=== PATIENT | female | born 1935 | race Caucasian/White ===

== ENCOUNTER 2017-11-05 17:47 | Emergency (ER) | payer MEDICARE, BC ==
[~2017-11-05] VITALS: Ht 160 cm; Wt 54.5 kg
[~2017-11-05 17:47] MED LIST: AZIT250T27 PO; CYCL-1 PO; HYDR-569 PO
[2017-11-05] MEDS ORDERED: normal saline 1000ML IV soln IVB ONE (19:20)
[2017-11-05 19:51] LABS: BASOPHILS % (AUTO) 0.2 % (0-1); EOSINOPHILS # (AUTO) 0.5 X10'3 (0-0.9); EOSINOPHILS % (AUTO) 6.2 % (0-6); HEMATOCRIT 40.5 % (35.0-45.0); HEMOGLOBIN 13.6 g/dl (12.0-16.0); LYMPHOCYTES # (AUTO) 1.2 X10'3 (1.1-4.8); LYMPHOCYTES % (AUTO) 13.6 % (21-51); MEAN CORPUSCULAR HEMOGLOBIN 30.5 PG (27.0-31.0); MEAN CORPUSCULAR HGB CONC 33.7 % (33.0-36.5); MEAN CORPUSCULAR VOLUME 90.7 FL (78-98); MEAN PLATELET VOLUME 8.7 FL (7.4-10.4); MONOCYTES # (AUTO) 0.7 X10'3 (0-0.9); MONOCYTES % (AUTO) 8.8 % (2-12); NEUTROPHILS % (AUTO) 71.2 % (42-75); PLATELET COUNT 158 X10'3 (140-440); RED BLOOD COUNT 4.47 X10'6 (4.20-5.60); RED CELL DISTRIBUTION WIDTH 13.9 % (11.5-14.5); WHITE BLOOD COUNT 8.5 X10'3 (4.5-11.0)
[2017-11-05 20:02] LABS: INR 1.1 INR; PARTIAL THROMBOPLASTIN TIME 28 SECONDS (22-32); PROTHROMBIN TIME 11.1 SECONDS (9.0-12.0)
[2017-11-05 20:07] LABS: ANION GAP 5 (8-16); CHLORIDE 106 MMOL/L (99-107); GLUCOSE 108 MG/DL (70-104); SODIUM 141 MMOL/L (135-145)
[2017-11-05 20:08] LABS: ALANINE AMINOTRANSFERASE 21 U/L (12-78); ALBUMIN 3.4 G/DL (3.4-5.0); ALBUMIN/GLOBULIN RATIO 0.9 (1.1-1.5); ALKALINE PHOSPHATASE 98 IU/L (46-116); ASPARTATE AMINO TRANSFERASE 16 U/L (10-37); BILIRUBIN,TOTAL 0.5 MG/DL (0.1-1.0); BLOOD UREA NITROGEN 28 MG/DL (7-18); BUN/CREATININE RATIO 33.3 (6.6-38.0); CALCIUM 10.5 MG/DL (8.5-10.1); CREATININE 0.84 MG/DL (0.40-0.90); TOTAL PROTEIN 7.2 G/DL (6.4-8.2); eGFR 65 ML/MIN
[2017-11-05 21:41] LABS: CLARITY,URINE Cloudy (Clear); COLOR,URINE Yellow (Yellow); GLUCOSE, URINE Negative (Neg); KETONES,URINE Negative (Neg); LEUKOCYTE ESTERASE ,URINE Trace (Neg); NITRITES, URINE Negative (Neg); OCCULT BLOOD,URINE Negative (Neg); PROTEIN,URINE Negative (Neg); UROBILINOGEN,URINE 0.2 E.U/dL (0.2-1.0)
[2017-11-05 21:43] LABS: UA COLLECTION TYPE STRAIGHT CATH
[2017-11-05 22:09] LABS: BACTERIA,URINE FEW /HPF (Neg); MUCUS STRANDS MODERATE /LPF (Neg); RBC,URINE 0-2 /HPF (0-2); SQUAMOUS EPITHELIAL CELL,UR MODERATE /LPF (FEW); TRANSITIONAL EPI CELLS,URINE MODERATE /HPF; WBC,URINE 0-4 /HPF (0-4)
[2017-11-06 00:40] VITALS: BP 147/77
== END 2017-11-06 00:47 | disposition home or self-care (01) ==
LOC: ER 17:48
DX: F03.90 Unspecified dementia, unspecified severity, without behavioral disturbance, psychotic disturbance, mood disturbance, and anxiety (principal)
CPT/HCPCS: 36415; 71010; 80053; 81001; 82948; 84443; 85025; 85610; 85730; 87088; 87502; 87503; 93005; 99285; A4310; A4344; J7030

== ENCOUNTER 2017-12-13 13:00 | Inpatient (IN) | payer MEDICARE, BC ==
[~2017-12-13] VITALS: Ht 170.2 cm; Wt 54.5 kg
[2017-12-13] MEDS ORDERED: normal saline 1000ml 1,000 ML IV ONE (13:13)
[2017-12-13] MEDS ORDERED: normal saline 1000ML IV soln IVB ONE ×2 (13:15→14:40)
[2017-12-13 14:53] LABS: ALANINE AMINOTRANSFERASE 92 U/L (12-78); ALBUMIN 4.3 G/DL (3.4-5.0); ALBUMIN/GLOBULIN RATIO 1.2 (1.1-1.5); ANION GAP 13 (8-16); ASPARTATE AMINO TRANSFERASE 48 U/L (10-37); BASOPHILS # (AUTO) 0.1 X10'3 (0-0.2); BASOPHILS % (AUTO) 0.6 % (0-1); BILIRUBIN,TOTAL 0.7 MG/DL (0.1-1.0); BLOOD UREA NITROGEN 87 MG/DL (7-18); BUN/CREATININE RATIO 45.8 (6.6-38.0); CHLORIDE 138 MMOL/L (99-107); EOSINOPHILS # (AUTO) 0.2 X10'3 (0-0.9); EOSINOPHILS % (AUTO) 2.7 % (0-6); GLUCOSE 104 MG/DL (70-104); HEMATOCRIT 51.9 % (35.0-45.0); HEMOGLOBIN 16.7 g/dl (12.0-16.0); LYMPHOCYTES # (AUTO) 1.4 X10'3 (1.1-4.8); LYMPHOCYTES % (AUTO) 15.8 % (21-51); MAGNESIUM 2.9 MG/DL (1.5-2.4); MEAN CORPUSCULAR HEMOGLOBIN 29.9 PG (27.0-31.0); MEAN CORPUSCULAR HGB CONC 32.2 % (33.0-36.5); MEAN CORPUSCULAR VOLUME 92.7 FL (78-98); MEAN PLATELET VOLUME 11.1 FL (7.4-10.4); MONOCYTES # (AUTO) 0.5 X10'3 (0-0.9); NEUTROPHILS # (AUTO) 6.7 X10'3 (1.8-7.7); NEUTROPHILS % (AUTO) 74.9 % (42-75); PHOSPHORUS 4.2 MG/DL (2.3-4.5); PLATELET COUNT 120 X10'3 (140-440); POTASSIUM 3.7 MMOL/L (3.5-5.1); RED BLOOD COUNT 5.59 X10'6 (4.20-5.60); RED CELL DISTRIBUTION WIDTH 14.4 % (11.5-14.5); TOTAL CARBON DIOXIDE 28.9 MMOL/L (24-32); WHITE BLOOD COUNT 8.9 X10'3 (4.5-11.0); eGFR 25 ML/MIN
[2017-12-13 14:54] LABS: SODIUM 180 MMOL/L (135-145)
[2017-12-13 14:55] LABS: ALKALINE PHOSPHATASE 119 IU/L (46-116)
[2017-12-13] MEDS ORDERED: sodium chloride 0.45% 1,000 ML IV SCH (15:35)
[2017-12-13 15:37] LABS: CLARITY,URINE SLIGHTLY CLOUDY (Clear); COLOR,URINE YELLOW (Yellow); GLUCOSE, URINE NEGATIVE (Neg); KETONES,URINE NEGATIVE (Neg); LEUKOCYTE ESTERASE ,URINE NEGATIVE (Neg); NITRITES, URINE NEGATIVE (Neg); OCCULT BLOOD,URINE NEGATIVE (Neg); PH,URINE 5.5 (4.8-8.0); PROTEIN,URINE NEGATIVE (Neg); UROBILINOGEN,URINE 0.2 E.U/dL (0.2-1.0)
[2017-12-13 15:38] LABS: UA COLLECTION TYPE FOLEY CATH
[2017-12-13 15:43] LABS: URINE AMPHETAMINE SCREEN NEGATIVE (Neg); URINE BARBITUATE SCREEN NEGATIVE (Neg); URINE BENZODIAZEPINES SCREEN NEGATIVE (Neg); URINE CANNABINOID SCREEN NEGATIVE (Neg); URINE COCAINE SCREEN NEGATIVE (Neg); URINE METHADONE SCREEN NEGATIVE (Neg); URINE OPIATE SCREEN NEGATIVE (Neg); URINE PHENCYCLIDINE SCREEN NEGATIVE (Neg)
[2017-12-13] MEDS ORDERED: LORazepam 2 mg/ml vial IV PRN (15:55)
[2017-12-13] MEDS ORDERED: morphine 2 MG/ML inj. syringe IV PRN ×2 (15:55→16:05)
[2017-12-13] MEDS ORDERED: morphine 10mg/0.5ml (conc. morphine) oral syringe PO PRN (15:55)
[2017-12-13 15:57] LABS: HYALINE CASTS >30 /LPF (NEGATIVE); SQUAMOUS EPITHELIAL CELL,UR FEW /LPF (FEW)
[2017-12-13 15:58] LABS: BACTERIA,URINE FEW /HPF (Neg); RBC,URINE 0-2 /HPF (0-2)
[2017-12-13 15:59] LABS: WBC CLUMPS,URINE FEW /HPF (NEGATIVE)
[2017-12-13 16:00] LABS: RENAL CELLS, URINE MODERATE /HPF; WBC,URINE 0-4 /HPF (0-4)
[2017-12-13] MEDS ORDERED: ondansetron/PF 4mg/2ml inj IV PRN (16:00)
[2017-12-14] MEDS ORDERED: LORA10TA7 PO (08:58)
[2017-12-14] MEDS ORDERED: DONE10TA44 PO (08:58)
[2017-12-14] MEDS ORDERED: POLY255P2 PO (08:58)
[2017-12-14] MEDS ORDERED: ASCO500C15 PO (08:58)
[2017-12-14] MEDS ORDERED: APIX2.5T PO (08:58)
[2017-12-14] MEDS ORDERED: POTA20TA19 PO (08:58)
[2017-12-14] MEDS ORDERED: TRAM100T28 PO (08:58)
[2017-12-14] MEDS ORDERED: MIRT15TA8 PO (08:58)
[2017-12-14] MEDS ORDERED: METH1TAB32 PO (08:58)
[2017-12-14] MEDS ORDERED: FURO20TA4 PO (08:58)
[2017-12-14] MEDS ORDERED: MEMA10TA21 PO (08:58)
[2017-12-14 10:00] VITALS: BP 88/65
[2017-12-14 22:00] VITALS: BP 60/46
[2017-12-15 11:18] VITALS: BP 107/80
== END 2017-12-15 15:50 | disposition hospice, home (50) | DRG 682 ==
LOC: ER 13:00 → ED HOLD 16:00 → ORTHO 4S 20:52
PROVIDERS: ADMIT Family Medicine; ATTEND Family Medicine
DX: N17.9 Acute kidney failure, unspecified (principal); G93.41 Metabolic encephalopathy; E87.0 Hyperosmolality and hypernatremia; G30.1 Alzheimer's disease with late onset; F02.81 Dementia in other diseases classified elsewhere, unspecified severity, with behavioral disturbance; G91.2 (Idiopathic) normal pressure hydrocephalus; R47.01 Aphasia; Z51.5 Encounter for palliative care
CPT/HCPCS: 36415; 70450; 71045; 80053; 80305; 81001; 82948; 83605; 83735; 84100; 84300; 84484; 85025; 87040; 87070; 93005; 96360; 96361; 99291; A6213; J2270; J7030